=== PATIENT | female | born 1965 | race Native Hawaiian/Other Pacific Islander ===

== ENCOUNTER → 2021-11-25 | Outpatient (CLI) | payer SELFPAY ==
[2021-11-25 15:07] LABS: HEMATOCRIT 40 % (35-52); HEMOGLOBIN 13.6 g/dL (11.5-16.0); MEAN CORPUSCULAR HEMOGLOBIN 31 pg (25-34); MEAN CORPUSCULAR HGB CONC 34 g/dL (32-36); MEAN CORPUSCULAR VOLUME 91 fL (80-99); MEAN PLATELET VOLUME 9.3 fL (9.0-12.2); PLATELET COUNT 348 10^3/uL (130-400); WHITE BLOOD COUNT 6.3 10^3/uL (4.3-11.0)
[2021-11-25 15:08] LABS: BASOPHILS # (AUTO) 0.1 10^3/uL (0.0-0.1); BASOPHILS % (AUTO) 1 % (0-10); EOSINOPHILS # (AUTO) 0.1 10^3/uL (0.0-0.3); EOSINOPHILS % (AUTO) 2 % (0-10); LYMPHOCYTES # (AUTO) 2.3 X 10^3 (1.0-4.0); LYMPHOCYTES % (AUTO) 36 % (12-44); MONOCYTES # (AUTO) 0.4 X 10^3 (0.0-1.0); MONOCYTES % (AUTO) 7 % (0-12); NEUTROPHILS # (AUTO) 3.4 X 10^3 (1.8-7.8); NEUTROPHILS % (AUTO) 54 % (42-75)
--- NOTE | 2021-11-25 15:19 | Diagnostic Imaging Report ---
INDICATION: Left knee pain. FINDINGS: Three views of the left knee show no fracture, dislocation, or other acute abnormalities. IMPRESSION: Unremarkable left knee. Dictated by: Dictated on workstation # [id number]
[2021-11-25 15:27] LABS: CREATININE SERUM 0.63 MG/DL (0.60-1.30); POTASSIUM 3.6 MMOL/L (3.6-5.0)
[2021-11-25 15:28] LABS: ALBUMIN 4.4 GM/DL (3.2-4.5); BILIRUBIN,TOTAL 0.3 MG/DL (0.1-1.0); TOTAL PROTEIN 7.6 GM/DL (6.4-8.2)
== END ==
LOC: LAB FS 14:35
PROVIDERS: ATTEND Registered Nurse Emergency
DX: Z00.00 Encounter for general adult medical examination without abnormal findings (principal); M25.562 Pain in left knee; R53.83 Other fatigue
CPT/HCPCS: 36415; 73562; 80053; 80061; 82306; 82607; 84443; 85025

== ENCOUNTER → 2022-06-19 | Outpatient (CLI) | payer OTHER ==
--- NOTE | 2022-06-19 12:47 | Diagnostic Imaging Report ---
PROCEDURE: US Non-ob pelvis comp/trans. TECHNIQUE: Multiple realtime grayscale images were obtained of the pelvis in various projections endovaginally. Transabdominal imaging was also performed. INDICATION: Postmenopausal bleeding Uterus measures 9.5 x 4.6 x 5.1 cm. There appear to be intramural uterine fibroids. One in the anterior uterus measures 3.5 cm in diameter. Another in the uterine fundus posteriorly measures 2.4 cm in diameter. Endometrial stripe is not thickened. There are nabothian cysts in the cervix. Ovaries are unremarkable. There is no free fluid. IMPRESSION: Fibroid uterus. Dictated by: Dictated on workstation # [id number]
== END ==
LOC: RAD FS 07:47
PROVIDERS: ATTEND Registered Nurse Emergency
DX: D25.9 Leiomyoma of uterus, unspecified (principal)
CPT/HCPCS: 76830; 76856

== ENCOUNTER → 2022-06-20 | Outpatient (CLI) | payer OTHER ==
[2022-06-20 12:18] LABS: BASOPHILS # (AUTO) 0.1 10^3/uL (0.0-0.1); BASOPHILS % (AUTO) 2 % (0-10); EOSINOPHILS # (AUTO) 0.1 10^3/uL (0.0-0.3); EOSINOPHILS % (AUTO) 1 % (0-10); HEMATOCRIT 41 % (35-52); LYMPHOCYTES # (AUTO) 2.4 10^3/uL (1.0-4.0); LYMPHOCYTES % (AUTO) 35 % (12-44); MEAN CORPUSCULAR HEMOGLOBIN 31 pg (25-34); MEAN CORPUSCULAR HGB CONC 34 g/dL (32-36); MEAN CORPUSCULAR VOLUME 90 fL (80-99); MONOCYTES # (AUTO) 0.4 10^3/uL (0.0-1.0); MONOCYTES % (AUTO) 6 % (0-12); NEUTROPHILS # (AUTO) 3.8 10^3/uL (1.8-7.8); NEUTROPHILS % (AUTO) 56 % (42-75); PLATELET COUNT 339 10^3/uL (130-400); WHITE BLOOD COUNT 6.8 10^3/uL (4.3-11.0)
== END ==
LOC: LAB FS 11:53
PROVIDERS: ATTEND Registered Nurse Emergency
DX: N95.0 Postmenopausal bleeding (principal)
CPT/HCPCS: 36415; 85025

== ENCOUNTER → 2022-06-26 | Outpatient (CLI) | payer OTHER | LOC: ORTHO 15:50 | PROVIDERS: ATTEND Orthopaedic Surgery | DX: S83.242A Other tear of medial meniscus, current injury, left knee, initial encounter (principal); I10 Essential (primary) hypertension; E78.5 Hyperlipidemia, unspecified; X58.XXXA Exposure to other specified factors, initial encounter ==

== ENCOUNTER → 2022-07-07 | Outpatient (CLI) | payer OTHER ==
--- NOTE | 2022-07-07 15:09 | Diagnostic Imaging Report ---
PROCEDURE: MRI left joint lower extremity without contrast. TECHNIQUE: Multiplanar, multisequence non contrast-enhanced MRI of the left lower extremity was accomplished. INDICATION: TEAR OF MENISCUS LEFT KNEE Left knee pain and swelling. COMPARISON: Radiographs from 11/25/2021 FINDINGS: Bone/joint: No acute fracture is seen in the left knee. There are mild degenerative changes in all 3 compartments. Subcortical cystlike change and edema is seen at the lateral patella. There is a moderate left knee joint effusion and a small Sainz's cyst. Articular cartilage: Patellofemoral: Moderate thinning with surface irregularity and small full-thickness defects. Medial: Moderate thinning with small full-thickness defects and surface irregularity. Lateral: Mild thinning with no large full-thickness defects. Meniscus: Medial: Horizontal tear of the posterior horn. Lateral: Complex, vertical tear of the anterior horn. Ligaments: Anterior cruciate: Intact Posterior cruciate: Intact Medial collateral: Intact Lateral collateral ligament complex: Intact Extensor mechanism: Intact. Medial and lateral retinacula are intact. Soft tissues/other: No masses or fluid collections. No focal muscular atrophy. IMPRESSION: 1. Tearing of the medial and lateral menisci. 2. Tricompartmental degenerative change and cartilage loss in the left knee, most pronounced in the medial and patellofemoral compartments. 3. Moderate left knee joint effusion and small Sainz's cyst. Dictated by: Dictated on workstation # [id number]
== END ==
LOC: RAD 08:59
PROVIDERS: ATTEND Orthopaedic Surgery
DX: S83.242A Other tear of medial meniscus, current injury, left knee, initial encounter (principal); S83.282A Other tear of lateral meniscus, current injury, left knee, initial encounter; M17.12 Unilateral primary osteoarthritis, left knee; M71.22 Synovial cyst of popliteal space [Baker], left knee; X58.XXXA Exposure to other specified factors, initial encounter
CPT/HCPCS: 73721

== ENCOUNTER → 2023-04-16 | Outpatient (CLI) | payer OTHER ==
[~2023-04-16] MED LIST: RT-ALBUTEROL SULF 2.5 MG/3 ML PRE-MIX VIAL INH ONE
== END ==
LOC: RT 12:55
PROVIDERS: ATTEND Nurse Practitioner Family
DX: R09.89 Other specified symptoms and signs involving the circulatory and respiratory systems (principal); R05.3 Chronic cough
CPT/HCPCS: 94060; 94726; 94729